=== PATIENT | male | born 1955 | race Caucasian/White ===

== ENCOUNTER 2016-11-05 18:35 | Emergency (ER) | payer BC, OTHER ==
[2016-11-05] MEDS ORDERED: NORMAL SALINE 10 ML SYRINGE FLUSH IVP PRN (18:48)
[2016-11-05] MEDS: Sodium Chloride 0.9% 1,000 ML PRIMARY IV ONE ×2 (18:50→19:59)
[2016-11-05 18:54] LABS: BASOPHILS # (AUTO) 0.06 10*3/UL; BASOPHILS % (AUTO) 0.5 % (0-1); EOSINOPHILS % (AUTO) 4.6 % (0-8); HEMATOCRIT 40.8 % (42.0-52.0); HEMOGLOBIN 14.9 g/dL (14.0-18.0); LYMPHOCYTES # (AUTO) 5.82 10*3/uL; MEAN CORPUSCULAR HGB CONC 36.5 g/dL (33-37); MEAN CORPUSCULAR VOLUME 90.3 FL (80-90); MEAN PLATELET VOLUME 10.1 FL (7.4-12.2); MONOCYTES # (AUTO) 1.03 10*3/UL (0.3-0.8); MONOCYTES % (AUTO) 7.9 % (5-15); NEUTROPHILS # (AUTO) 5.48 10*3/UL; NEUTROPHILS % (AUTO) 41.8 % (50-80); PLATELET MORPHOLOGY COMMENT NORMAL MORPHOLOGY (NORM); RBC MORPHOLOGY COMMENT NORMAL MORPHOLOGY (NORM); RED BLOOD COUNT 4.52 10^6/uL (4.70-6.10); WBC MORPHOLOGY COMMENT NORMAL MORPHOLOGY (NORM)
[2016-11-05] MEDS ORDERED: DIPH,PERTUSS,TET(ADACEL) VAC/PF 0.5 ML (Tdap) IM ONE (18:57)
[2016-11-05 19:03] LABS: BLOOD UREA NITROGEN 15 mg/dL (7-22); CALCIUM 8.9 mg/dL (8.7-10.7); EST GLOMERULAR FILTRATION > 60 (>60 ml/min/1.73m(2)); MAGNESIUM 1.8 mg/dL (1.6-2.4); SERUM ALBUMIN 4.1 g/dL (3.5-4.8)
[2016-11-05 19:26] VITALS: RESP 16; TEMP 97.6
[2016-11-05] MEDS ORDERED: KETOROLAC 15 MG/1 ML VIAL IVP ONE (20:18)
--- NOTE | 2016-11-05 22:42 | PDOC ---
General Adult HPI - General Chief Complaint: Drug / Alcohol Use &/or Abuse Stated Complaint: ACUTE ETOH INTOX/FALL WHEN STANDING UP FROM CHAIR Date Seen by Provider: 11/05/16 Time Seen by Provider: 18:40 Source: POSITIVE: Patient, Spouse, EMS Exam Limitations: POSITIVE: Intoxication Nurse's Notes Reviewed & Considered: Yes EMS Report Reviewed & Considered: Verbal - History of Present Illness Initial Comment: The patient is a 61-year-old male who is brought to the emergency department by ambulance after he fell in his yard. He was apparently sitting in a lawn chair and has been drinking today. He got up out of his lawn chair to herminio someone. He apparently fell as soon as he got up and hit his face on the ground. He was having a difficult time getting up and seemed out of it so EMS was called. On arrival the patient was found to be intoxicated. He does have abrasion to his nose and bruising to his right cheek as well as a small abrasion on his forearm. He is complaining of some lower back pain however this apparently is chronic. He was transported here to the emergency department. On arrival the patient is awake and alert however he is intoxicated. He does answer questions. He is complaining of pain in his upper back on arrival. He denies any headache, chest wall or abdominal pain on arrival. He denies any pain in his arms or legs. Have you received a tetanus shot in the past 10 years?: No - Patient Home Medications Home Medications: Home Medications Allopurinol 100 mg PO PRN #30 tab 09/25/16 Hydrochlorothiazide 1 tab ORAL QD #30 tab 09/25/16 Indomethacin 50 mg PO PRN #30 cap 09/25/16 Lisinopril 1 tab ORAL QD #30 tab 09/25/16 Metoprolol Succinate 200 mg ORAL QD #30 tab 09/25/16 Hydrocodone/Acetaminophen [[place] 5-325 Tablet] 1 each PO Q6H PRN #15 tablet 01/15 - Patient Allergies Allergies/Adverse Reactions: Allergies Allergy/AdvReac Type Severity Reaction Status Date / Time No Known Allergies Allergy Verified 11/05/16 18:58 Past Medical History - heen HEENT History: Denies History Cardiovascular History: Hypertension Respiratory History: Denies History Gastrointestinal History: Denies History Genitourinary History: Denies History Endocrine History: Denies History Musculoskeletal History: Back Pain Neurological History: Denies History Blood Disorders: Denies History Psychiatric History: Denies History History of Sexually Transmitted Diseases: No Male Reproductive History: Denies History Cancer History: Denies History In Past Year Been Physically Harmed or Verbally Threatened: No History of MDRO: No History of Other Communicable Diseases: No Tobacco Use: Never Smoker Alcohol Use: Occasionally Type of alcohol normally used: Beer, Hard Liquor Substance Use Type: None Previous Surgical History: No Past Medical History Reviewed: Reviewed - No Changes ROS - Limitations ROS Limitations: Intoxication Cardiovascular: REPORTS: Blood Pressure Problem (He reports a history of hypertension and he takes medication for this). DENIES: Chest Pain, Edema Respiratory: REPORTS: Denies Resp Symptoms. DENIES: Shortness Of Breath Neurological: DENIES: Headache, Numbness, Weakness Gastrointestinal: DENIES: Abdominal Pain, Vomitting Musculoskeletal: REPORTS: Back Pain (Here he is complaining of upper back pain on scene he was complaining of lower back pain, he has a history of chronic lower back pain) Eyes: REPORTS: Denies Symptoms ENT: REPORTS: Denies Symptoms Skin: DENIES: Rash General Adult Exam - General Appearance General Appearance: POSITIVE: Alert, No Acute Distress, Other (Patient is intoxicated however he does answer questions appropriately) - HEENT HEENT: POSITIVE: Eyes Inspection Nml, Ears Inspection Nml, Oral/Dental Inspect. Nml, Pharynx Inspect. Nml, PERRL, EOMI, Other (He does have an abrasion to the right side of his nose with some associated swelling, he has an area of ecchymosis extending onto the right cheek, no obvious bony tenderness or deformity to the temporomandibular joints are mandible, no maxillary instability ) - Neck Neck: POSITIVE: Normal Inspection, Other (No obvious midline tenderness although he does have some tenderness to the upper thoracic region and mid thoracic region on exam) - Respiratory Respiratory: POSITIVE: No Respiratory Distress, Breath Sounds Normal - Cardiovascular Cardiovascular: POSITIVE: Regular Rate & Rhythm, No Murmur - Abdomen Abdomen: Soft: (All Quadrants), Normal Bowel Sounds: (All Quadrants), No Distention: (All Quadrants) - Back Back: POSITIVE: Other (He does have tenderness to the upper and mid thoracic spine as well as some minimal tenderness in the lumbar region, no visible ecchymosis or abrasion) - Skin Skin: POSITIVE: Normal Color - Extremities Extremity: Normal ROM: (All Extremities), Normal Inspection: (All Extremities) - Neurological / Psychological Neurological: POSITIVE: 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 CT scan of the maxillofacial bones reveals a in irregularity on the zygoma on the right likely representing nondisplaced fracture per radiologist. CT scan of the cervical and thoracic spine reveals degenerative changes with no evidence of acute fracture. Lab Results Reviewed: Yes Lab Results:: Laboratory Results 11/05/16 Range/Units 18:45 WBC 13.08 H (4.8-10.8) 10^3/uL RBC 4.52 L (4.70-6.10) 10^6/uL Hgb 14.9 (14.0-18.0) g/dL Hct 40.8 L (42.0-52.0) % MCV 90.3 H (80-90) FL MCH 33.0 H (27-31) PG MCHC 36.5 (33-37) g/dL RDW Std Deviation 41.3 (39-50) fL RDW Coeff of Adeline 12.7 (11.5-14.5) % Plt Count 346 (140-350) 10*3/uL MPV 10.1 (7.4-12.2) FL Immature Gran % (Auto) 0.7 (0-5) % Neut % (Auto) 41.8 L (50-80) % Lymph % (Auto) 44.5 (10-50) % Mayes % (Auto) 7.9 (5-15) % Eos % (Auto) 4.6 (0-8) % Baso % (Auto) 0.5 (0-1) % Immature Gran # (Auto) 0.09 10*3/UL Neut # (Auto) 5.48 10*3/UL Lymph # (Auto) 5.82 10*3/uL Mayes # (Auto) 1.03 H (0.3-0.8) 10*3/UL Eos # (Auto) 0.60 10*3/UL Baso # (Auto) 0.06 10*3/UL WBC Morphology Comment Normal morphology (NORM) Plt Morphology Comment Normal morphology (NORM) RBC Morph Comment Normal morphology (NORM) D-Dimer 0.57 (0.00-0.59) mg/L Sodium 130 L (135-145) meq/L Potassium 3.8 (3.8-5.2) meq/L Chloride 95 L (98-112) meq/L Carbon Dioxide 21 L (23-33) meq/L Anion Gap 14 (5-20) BUN 15 (7-22) mg/dL Creatinine 1.0 (0.70-1.50) mg/dL Estimated GFR > 60 (>60 ml/min/1.73m(2)) BUN/Creatinine Ratio 15.00 (6-20) Glucose 140 H (78-110) mg/dL Calculated Osmolality 272.0 (267-292) mOsm/kg Calcium 8.9 (8.7-10.7) mg/dL Magnesium 1.8 (1.6-2.4) mg/dL Total Bilirubin 0.5 (0.3-1.2) mg/dL AST 36 (21-57) IU/L ALT 37 (21-72) IU/L Alkaline Phosphatase 83 (38-126) IU/L Troponin I < 0.012 (< 0.040) ng/mL Total Protein 7.2 (6.1-8.0) g/dL Albumin 4.1 (3.5-4.8) g/dL Globulin 3.1 (2.50-4.10) g/dL Albumin/Globulin Ratio 1.30 (1.3-2.0) mg/g Serum Alcohol 340 H (0-10) mg/dL EKG Interpreted/Reviewed By Me:: Yes EKG Interpretation:: POSITIVE: Normal Sinus Rhythm, Normal Rate, Normal Intervals, Normal [place], Normal QRS, Normal ST/T - Patient's Progress MDM / ED Course: On arrival the patient received 1 L bolus of normal saline. His tetanus was updated with Tdap. After the patient came back from CT he was complaining of some chest pain. EKG was obtained and was normal sinus rhythm with no acute changes. His troponin and d-dimer are normal. He did at that time have tenderness to palpation over the sternum. He received Toradol 15 mg IV and his pain resolved. CT scans of his head revealed no evidence of skull fracture or intracranial hemorrhage. CT scan of the cervical and thoracic spine revealed degenerative changes with no acute fracture. CT scan of the maxillofacial bones does reveal a likely nondisplaced fracture of the zygoma on the right. All of these findings were discussed with the patient and his . The patient is intoxicated with a blood alcohol of 340. He was however able to walk here in the ER. The chest pain that the patient was experiencing is most likely musculoskeletal in origin. I did discuss admitting the patient for further cardiac monitoring to be sure however the patient did not want to be admitted and his did not think that he needed admission. The patient was prescribed [place] 5/325 as needed for pain and was advised not to take this with alcohol. In addition he will continue ibuprofen 600 mg every 6 hours as needed for pain. He is advised follow-up with primary care in 2-3 days for recheck. He will return here to the emergency room if any worsening or change in symptoms. - Consult Counseled: POSITIVE: Patient, Family, RE: Lab Results, RE: Radiology Results, RE : DX, RE: Need for F/U Patient Care Time - Estimated PCT Patient Care Time (In Minutes): 40 Vital Signs - Recent Vital Signs Vital Signs: Vital Signs (Last 8 hours) Temp Pulse Resp BP Pulse Ox 11/05/16 18:35 97.6 F 65 16 96/66 91 - VS Reviewed Vital Signs Reviewed: Yes Discharge Clinical Impression: Fall, Zygoma fracture, Chest wall pain, Back pain, Alcohol intoxication Condition: Stable Prescriptions / Orders: Hydrocodone/Acetaminophen [[place] 5-325 Tablet] 1 each PO Q6H PRN #15 tablet PRN Reason: Pain Patient Instructions Given at Discharge: Alcohol Intoxication (ED) Additional Instructions: The CAT scan of the head and facial bones does reveal a nondisplaced fracture of the cheekbone on the right side. This should likely heal on its own and should not require any type of surgical intervention. The head CT was otherwise normal with no evidence of internal injury or skull fracture. CT scan of the cervical spine and thoracic spine revealed arthritic changes with no evidence of fractures. Blood tests revealed an elevated alcohol level at 340. EKG on the heart was normal and the blood work did not reveal any evidence of heart attack or blood clot. The chest pain that he experienced here in the emergency department was most likely related to mechanical pain from his fall. Recommend ibuprofen 600 mg every 6 hours as needed for pain. In addition he has been prescribed [place] 5/325 which she can take one every 6 hours as needed for pain. This medication cannot be taken with alcohol. Return to the emergency room if increased pain, worsening or change in symptoms. Recommend follow-up with primary care in 2-3 days. Follow Up With: NONE,NONE [Primary Care Provider] -
--- NOTE | 2016-11-07 10:16 | EKG ---
[facility] [place] Measurements Intervals [place] Rate: P: DE: QRS: QRSD: T: QT: QTc: Interpretive Statements No previous ECG available for comparison Borderline QS in III and aVF cannot rule out inferior IL of indeterminate age Electronically Signed On 11-08-16 09:03:57 MDT by Marek Antoine MD [email or web address]
== END 2016-11-05 21:33 | disposition home or self-care (01) ==
LOC: ER 19:05
DX: S02.40EA Zygomatic fracture, right side, initial encounter for closed fracture (principal); S00.31XA Abrasion of nose, initial encounter; S00.83XA Contusion of other part of head, initial encounter; M54.5 Low back pain; R07.89 Other chest pain; F10.129 Alcohol abuse with intoxication, unspecified; W07.XXXA Fall from chair, initial encounter
CPT/HCPCS: 70450; 70486; 72125; 72128; 80053; 80320; 83735; 84484; 85025; 85379; 90471; 93005; 93010; 96361; 96374; 99283; J1885; J7030